=== PATIENT | male | born 1985 | race Caucasian/White ===

== ENCOUNTER 2018-04-06 19:21 | Emergency (ER) | payer OTHER ==
[~2018-04-06] VITALS: Ht 167.6 cm; Wt 119.3 kg
[2018-04-06 19:24] VITALS: TEMP 36.9; Ht 167.6 cm; Wt 119.3 kg
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
[2018-04-06 21:39] VITALS: BP 137/95; PULSE 88; O2SAT 97
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
== END 2018-04-06 21:40 | disposition home or self-care (01) ==
LOC: C.EDB 19:23 → C.EDD 21:40
DX: S16.1XXA Strain of muscle, fascia and tendon at neck level, initial encounter (principal); S20.211A Contusion of right front wall of thorax, initial encounter; S50.811A Abrasion of right forearm, initial encounter; V53.5XXA Driver of pick-up truck or van injured in collision with car, pick-up truck or van in traffic accident, initial encounter; R40.2412 Glasgow coma scale score 13-15, at arrival to emergency department; R00.0 Tachycardia, unspecified; R51 Headache; I10 Essential (primary) hypertension